=== PATIENT | female | born 1995 | race Caucasian/White ===

== ENCOUNTER 2017-06-01 18:10 | Emergency (ER) | payer MEDICAID, OTHER ==
[~2017-06-01] VITALS: Ht 154.9 cm; Wt 50.0 kg
[2017-06-01 18:48] VITALS: Ht 154.9 cm; Wt 50.0 kg
[2017-06-01 23:24] LABS: ADD UMIC YES; UR ASCORBIC ACID NEGATIVE (NEGATIVE); UR BILIRUBIN (Dip) NEGATIVE (NEGATIVE); UR BLOOD (Dip) NEGATIVE (NEGATIVE); UR CLARITY SLIGHTLY CLOUDY (CLEAR); UR COLOR YELLOW (YELLOW); UR GLUCOSE (Dip) NEGATIVE (NEGATIVE); UR KETONES (Dip) 2+ mg/dL (NEGATIVE); UR LEUKOCYTE ESTERASE (Dip) TRACE Leu/ul (NEGATIVE); UR MUCUS MODERATE /HPF (NONE SEEN); UR NITRITE (Dip) NEGATIVE (NEGATIVE); UR RBC 1 /HPF (0-5); UR SPECIFIC GRAVITY (Dip) 1.025 (1.003-1.030); UR SQUAMOUS EPITHELIAL CELL FEW /HPF (FEW); UR TOTAL PROTEIN (Dip) NEGATIVE (NEGATIVE); UR UROBILINOGEN (Dip) 1+ mg/dL (NEGATIVE)
--- NOTE | 2017-06-01 23:46 | RADRPT ---
PROCEDURE: Ultrasound pelvis. CLINICAL INDICATION: Pelvic pain. TECHNIQUE: Multiple sonographic images of the pelvis were obtained utilizing a transabdominal and transvaginal technique. COMPARISON: None available FINDINGS: Uterus: 7.7 x 3.4 x 4.6 cm. Normal in size and echogenicity with no mass lesion identified. Endometrium: 7.7 mm in thickness. Unremarkable in appearance. Right ovary: 3.3 x 2.2 x 2.8 cm. Hemorrhagic cyst measuring 2.1 cm. Normal in size and echogenicity . Normal blood flow. Left ovary: 3.0 x 1.6 x 1.8 cm. Normal in size and echogenicity. Normal blood flow. Adnexa: No masses or sonographic abnormality. Free fluid: Small to moderate volume of free fluid in the cul-de-sac. IMPRESSION: 1. Benign 2.1 cm right ovarian hemorrhagic cyst. 2. Small volume of free fluid in the cul-de-sac, likely physiologic. RPTAT: HLBP .Adriel Patton MD, Date Time Electronically viewed and signed by .Adriel Patton MD, MD on 06/01/2017 23:46 .P/
[2017-06-01] MEDS ORDERED: ACET500C5 PO (23:52)
--- NOTE | 2017-06-01 23:57 | ERD ---
ER Documentation Chief Complaint Date/Time DATE: 06/01/17 TIME: 23:54 Chief Complaint pelvic pain x 1 month on and off HPI 21-year-old female patient with no significant past medical history presents to the ED complaining of pelvic pain that occurred intermittently for 1 month. Describes the pain as achy and rates it a 7 out of 10. States that her last menstruation was on May 03, 2017. Reports that she is a . Denies any vaginal bleeding, vaginal discharge, dysuria, urgency, frequency, abdominal pain, nausea, vomiting, diarrhea, constipation, flank pain. Patient reports that she is trying to get with her . ROS All systems reviewed and are negative except as per history of present illness. Medications Home Meds Active Scripts Acetaminophen* (Tylophen*) 500 Mg Capsule, 1 CAP PO Q6H Y for PAIN AND OR ELEVATED TEMP, #20 CAP Prov:DA DAILEY PA-C 06/01/17 Allergies Allergies: Coded Allergies: ibuprofen (Verified Allergy, Unknown, 06/01/17) PMhx/Soc Medical and Surgical Hx: pt denies Medical Hx, pt denies Surgical Hx History of Surgery: No Anesthesia Reaction: No Hx Neurological Disorder: No Hx Respiratory Disorders: No Hx Cardiac Disorders: No Hx Psychiatric Problems: No Hx Miscellaneous Medical Probl: No Hx Alcohol Use: No Hx Substance Use: No Hx Tobacco Use: No Smoking Status: Never smoker Physical Exam Vitals Vital Signs Date Time Temp Pulse Resp B/P Pulse Ox O2 Delivery O2 Flow Rate FiO2 06/01/17 18:48 99.7 67 20 118/57 97 Physical Exam Const: Mqg-trz-oaffviypn, well-nourished. In no acute distress. Head: Atraumatic, normocephalic Eyes: Normal Conjunctiva without injection. No purulent discharge. ENT: Normal external ear, nose. Moist oropharynx without tonsillar exudates. Non -erythematous pharynx. Uvula midline. No drooling. No trismus. Neck: No cervical midline tenderness. Full range of motion. No meningismus. No cervical lymphadenopathy. No JVD. Resp: Clear to auscultation bilaterally. No wheezing, rhonchi, rales, or crackles. No accessory muscle use. No retractions. Cardio: Regular rate and rhythm. No murmurs, rubs or gallops. Abd: Soft, left pelvic tenderness, non distended. Normal bowel sounds. No palpable masses. No rebound tenderness. No guarding. Negative McBurney's point. Negative psoas sign. Negative obturator sign. Skin: No petechiae or rashes Back: No midline tenderness. No CVA tenderness. Ext: No cyanosis, or edema. Neur: Awake and alert. Normal gait. Normal coordination. Psych: Normal Mood and Affect Results 24 hrs Laboratory Tests Test 06/01/17 22:00 Urine Color YELLOW Urine Clarity SLIGHTLY CLOUDY Urine pH 6.0 Urine Specific [place] 1.025 Urine Ketones 2+mg/dL Urine Nitrite NEGATIVEmg/dL Urine Bilirubin NEGATIVEmg/dL Urine Urobilinogen 1+mg/dL Urine Leukocyte Esterase TRACELeu/ul Urine Microscopic RBC 1/HPF Urine Microscopic WBC 4/HPF Urine Squamous Epithelial Cells FEW/HPF Urine Mucus MODERATE/HPF Urine Hemoglobin NEGATIVEmg/dL Urine Glucose NEGATIVEmg/dL Urine Total Protein NEGATIVEmg/dl Procedures/MDM 21-year-old female patient with no significant past medical history presents to the ED complaining of left pelvic pain that has been going on intermittently for 1 month. Patient reports that she is trying to get with her . Patient is afebrile and nontoxic-appearing. Patient has normal vital signs. Pelvic ultrasound and urinalysis, urine was ordered to further evaluate patient. Negative urine . Urinalysis shows trace leukocyte esterase and 4 white blood cells likely contamination. Low suspicion for urinary tract infection and pyelonephritis. Patient is not complaining of any dysuria. PROCEDURE: Ultrasound pelvis. CLINICAL INDICATION: Pelvic pain. TECHNIQUE: Multiple sonographic images of the pelvis were obtained utilizing a transabdominal and transvaginal technique. COMPARISON: None available FINDINGS: Uterus: 7.7 x 3.4 x 4.6 cm. Normal in size and echogenicity with no mass lesion identified. Endometrium: 7.7 mm in thickness. Unremarkable in appearance. Right ovary: 3.3 x 2.2 x 2.8 cm. Hemorrhagic cyst measuring 2.1 cm. Normal in size and echogenicity. Normal blood flow. Left ovary: 3.0 x 1.6 x 1.8 cm. Normal in size and echogenicity. Normal blood flow. Adnexa: No masses or sonographic abnormality. Free fluid: Small to moderate volume of free fluid in the cul-de-sac. IMPRESSION: 1. Benign 2.1 cm right ovarian hemorrhagic cyst. 2. Small volume of free fluid in the cul-de-sac, likely physiologic. Low suspicion for ectopic , ovarian torsion, gastritis, GERD, peptic ulcer disease, cholecystitis, choledocholithiasis, cholangitis, pancreatitis, appendicitis, bowel obstruction, ileus, volvulus, nephrolithiasis, pyelonephritis, hepatitis, perforated viscus, diverticulitis, strangulated/ incarcerated hernia, DKA, acute abdomen, mesenteric ischemia or other emergent conditions. Discharge medications: Tylenol Follow up with primary care physician in 1-2 days for referral to closet builder. Instructed patient to return to the ED sooner for any worsening symptoms. Patient's questions were answered. Patient understood and agreed with discharge plan. Patient discharged stable. Departure Diagnosis: Primary Impression: Pelvic pain Patient Instructions: Pelvic Pain, Unknown Cause Referrals: [facility] YOU HAVE RECEIVED A MEDICAL SCREENING EXAM AND THE RESULTS INDICATE THAT YOU DO NOT HAVE A CONDITION THAT REQUIRES URGENT TREATMENT IN THE EMERGENCY DEPARTMENT. FURTHER EVALUATION AND TREATMENT OF YOUR CONDITION CAN WAIT UNTIL YOU ARE SEEN IN YOUR DOCTORS OFFICE WITHIN THE NEXT 1-2 DAYS. IT IS YOUR RESPONSIBILITY TO MAKE AN APPOINTMENT FOR FOLOW-UP CARE. IF YOU HAVE A PRIMARY DOCTOR --you should call your primary doctor and schedule an appointment IF YOU DO NOT HAVE A PRIMARY DOCTOR YOU CAN CALL OUR PHYSICIAN REFERRAL HOTLINE AT IF YOU CAN NOT AFFORD TO SEE A PHYSICIAN YOU CAN CHOSE FROM THE FOLLOWING [facility] [address] [facility]. [facility] [address] [facility] [address] [facility] [facility] [address] [facility] [facility] [address] [facility] [facility]. [address] [facility]. [facility] YOU HAVE RECEIVED A MEDICAL SCREENING EXAM AND THE RESULTS INDICATE THAT YOU DO NOT HAVE A CONDITION THAT REQUIRES URGENT TREATMENT IN THE EMERGENCY DEPARTMENT. FURTHER EVALUATION AND TREATMENT OF YOUR CONDITION CAN WAIT UNTIL YOU ARE SEEN IN YOUR DOCTORS OFFICE WITHIN THE NEXT 1-2 DAYS. IT IS YOUR RESPONSIBILITY TO MAKE AN APPOINTMENT FOR FOLOW-UP CARE. IF YOU HAVE A PRIMARY DOCTOR --you should call your primary doctor and schedule and appointment IF YOU DO NOT HAVE A PRIMARY DOCTOR YOU CAN CALL OUR PHYSICIAN REFERRAL HOTLINE AT . IF YOU CAN NOT AFFORD TO SEE A PHYSICIAN YOU CAN CHOSE FROM THE FOLLOWING [facility] INSTITUTIONS: [facility] [address] [place] [address] [facility] [address] [place] [address] [facility] [address] [place] [address] [employer] [place] [address] [facility] [address] [place], [place] [id number] OFFICE FAX , [facility] [address] [place], [place] [id number] [address] [address] [place] [address] [address] [facility] [address] [facility] [address] [address] [facility] [facility] [address] [place] [address] [facility] [address] [place] [address] [facility] [address] - [address]SE ARMANDO [address], [facility] [address] [address] [address] [facility] [address], [facility] [address] [address] [facility] [address] [place], [place] [id number] [facility] Hours: 8:00 am - 5:00 pm Additional Instructions: FOLLOW UP WITH YOUR PRIMARY CARE PHYSICIAN TOMORROW for a referral to see an OB/ SALES DRIVER for further evaluation and treatment.Return to this facility if you are not improving as expected. DA DAILEY PA-C Jun 01, 2017 23:57
[2017-06-02 00:28] VITALS: BP 122/62; PULSE 75; RESP 20; TEMP 98.6
== END 2017-06-02 00:29 | disposition home or self-care (01) ==
LOC: FTE 18:10
DX: R10.2 Pelvic and perineal pain (principal)
CPT/HCPCS: 76830; 76856; 81001; Z7502

== ENCOUNTER 2017-11-24 17:55 | Outpatient (CLI) | END 2017-11-24 21:55 | disposition home or self-care (01) ==

== ENCOUNTER 2018-03-14 21:27 | Inpatient (IN) | END 2018-03-17 13:00 | disposition home or self-care (01) | DRG 775 ==

== ENCOUNTER 2019-01-15 19:59 | Emergency (ER) | payer SELFPAY ==
[~2019-01-15] VITALS: Ht 167.6 cm; Wt 59.9 kg
[~2019-01-15 19:59] MED LIST: PNV11TAB PO
[2019-01-15 20:10] VITALS: Ht 167.6 cm; Wt 59.9 kg
--- NOTE | 2019-01-15 20:45 | ERD ---
ER Documentation Chief Complaint Chief Complaint cough x3 days. states chest hurts when she coughs HPI The 3-year-old female, presents to the emergency department, complaining of 3 days with upper respiratory symptoms including cough and chest congestion. Otherwise the patient denies fever or chills, no shortness of breath. No medications taken at this time for the symptoms. ROS All systems reviewed and are negative except as per history of present illness. Medications Home Meds Active Scripts Albuterol Sulfate* (Proair HFA*) 8.5 Gm Hfa.aer.ad, 2 PUFF INH Q4, #1 INHALER Prov:RAISA ENRIQUE MD 01/15/19 Promethazine HCl/Codeine (Prometh-Codein 6.25-10 mg/5 ml) 5 Ml Syrup, 5 ML PO BID PRN for COUGH, #60 ML Prov:RAISA ENRIQUE MD 01/15/19 Reported Medications [id number] ( 19) 1 Each Tablet, 1 TAB PO DAILY, TAB 11/24/17 Allergies Allergies: Coded Allergies: ibuprofen (Verified Allergy, Unknown, 03/14/18) PMhx/Soc Medical and Surgical Hx: pt denies Medical Hx, pt denies Surgical Hx History of Surgery: No Anesthesia Reaction: No Hx Neurological Disorder: No Hx Respiratory Disorders: No Hx Cardiac Disorders: No Hx Psychiatric Problems: No Hx Miscellaneous Medical Probl: No Hx Alcohol Use: No Hx Substance Use: No Hx Tobacco Use: No Smoking Status: Never smoker FmHx Family History: No diabetes, No coronary disease Physical Exam Vitals Vital Signs Date Temp Pulse Resp B/P (MAP) Pulse Ox O2 O2 Flow FiO2 Time Delivery Rate 01/15/19 97.8 66 18 120/58 100 20:10 (78) Physical Exam Const: No acute distress Head: Atraumatic Eyes: Normal Conjunctiva ENT: Normal External Ears, Nose and Mouth. Neck: Full range of motion. No meningismus. Resp: Clear to auscultation bilaterally Cardio: Regular rate and rhythm, no murmurs Abd: Soft, non tender, non distended. Normal bowel sounds Skin: No petechiae or rashes Back: No midline or flank tenderness Ext: No cyanosis, or edema Neur: Awake and alert Psych: Normal Mood and Affect Procedures/MDM Differential diagnosis include but not limited to: Respiratory infection b acterial/viral/fungal. Asthma, pneumonitis, allergies, GERD. Less likely foreign body aspiration, cardiac related, aspiration pneumonia, malignancy. Physical examination and clinical presentation consistent most likely with viral syndrome. During the ED course the patient remained stable, no new complaints. Clinical impression discussed with the patient who agrees with management. The patient is stable to be treated outpatient and will be discharged home. antibiotics not indicated at this time. some side effects of prescribed medications (headache, rash, nausea, vomiting, diarrhea, drowsiness, hypertension, interactions with other medications) were reviewed. The patient was instructed to follow up with the primary care provider in the next 48h. If symptoms persist, worsen or new symptoms develop, then patient should return to the ED immediately. Disclaimer: Inadvertent spelling and grammatical errors are likely due to EHR/dictation software use and do not reflect on the overall quality of patient care. Also, please note that the electronic time recorded on this note does not necessarily reflect the actual time of the patient encounter. Departure Diagnosis: Primary Impression: Upper respiratory infection Condition: Stable Patient Instructions: Preventing Common Respiratory Infections Additional Instructions: Thank you very much for allowing us to participate in your care. Your health and safety is our top priority at [facility]. The evaluation in the emergency department has been done to rule out an acute emergency, therefore, chronic conditions like malignancy or other diseases have not been evaluated; therefore, you need to follow up with a primary care provider in the next 48h. If symptoms persist, worsen or new symptoms develop, then patient should return to the ED immediately. Call your primary care doctor TOMORROW for an appointment during the next 2-4 days and bring all the information provided. Have prescriptions filled and follow precisely the directions on the label. If the symptoms get worse and your provider is unavailable, return to the Emergency Department immediately. RAISA ENRIQUE MD Jan 15, 2019 20:45
[2019-01-15] MEDS ORDERED: ALBU8.5H8 INH (20:46)
[2019-01-15] MEDS ORDERED: PROM5SYR2 PO (20:46)
[2019-01-15 21:29] VITALS: BP 108/60; PULSE 60; RESP 18
== END 2019-01-15 21:29 | disposition home or self-care (01) ==
LOC: FTE 19:59
DX: J06.9 Acute upper respiratory infection, unspecified (principal)
CPT/HCPCS: 99283